=== PATIENT | female | born 1980 ===

== ENCOUNTER 2022-04-03 10:37 | Emergency (ER) | payer SELFPAY ==
[2022-04-03 10:48] VITALS: BP 117/75
[2022-04-03 11:07] LABS: BASO # 0.02 K/mm3 (0.02-0.10); EOS # 0.16 K/mm3 (0.04-0.40); EOS % 2.2 % (1.0-5.0); HEMATOCRIT 42.8 % (37.0-47.0); HEMOGLOBIN 14.3 g/dL (12.5-16.0); LYMPH# 2.52 K/mm3 (1.50-4.00); MEAN CELL VOLUME 87 fl (78-100); MEAN CORPUSCULAR HEMOGLOBIN 29 pg (27-31); MEAN CORPUSCULAR HGB CONC 33 g/dL (33-37); MEAN PLATELET VOLUME 8.8 fl (7.4-10.4); MONO # 0.35 K/mm3 (0.20-0.80); PLATELET COUNT 272 K/mm3 (130-400); RED BLOOD COUNT 4.93 M/mm3 (4.10-5.30); RED CELL DISTRIBUTION WIDTH 12.3 % (11.5-14.5); WHITE BLOOD COUNT 7.4 K/mm3 (4.8-10.8)
[2022-04-03 11:17] LABS: ALBUMIN 4.5 g/dL (3.5-5.0); POTASSIUM 3.9 mmol/L (3.5-5.1); SODIUM 141 mmol/L (136-145)
[2022-04-03 11:18] LABS: CALCIUM 9.8 mg/dL (8.3-10.5)
[2022-04-03 11:20] LABS: GLUCOSE 126 mg/dL (65-105); TOTAL PROTEIN 7.9 g/dL (6.4-8.3)
[2022-04-03 11:21] LABS: CARBON DIOXIDE 25 mmol/L (22-29); TOTAL BILIRUBIN 1.3 mg/dL (0.2-1.2)
[2022-04-03 11:25] LABS: AST-SGOT 12 U/L (5-34)
[2022-04-03 11:26] LABS: ALT/SGPT 14 U/L (0-55)
[2022-04-03 11:27] LABS: LIPASE 24 U/L (8-78)
[2022-04-03 11:37] LABS: TROPONIN-I < 0.030 ng/mL (<0.030)
[2022-04-03 11:58] LABS: URINE APPEARANCE HAZY; URINE BILIRUBIN NEGATIVE (NEGATIVE); URINE BLOOD NEGATIVE (NEGATIVE); URINE COLOR YELLOW; URINE GLUCOSE NEGATIVE (NEGATIVE); URINE KETONE NEGATIVE (NEGATIVE); URINE LEUKOCYTE ESTERASE NEGATIVE (NEGATIVE); URINE NITRATE POSITIVE (NEGATIVE); URINE PROTEIN(semi-quant) NEGATIVE (NEGATIVE); URINE UROBILINOGEN NORMAL (NORMAL)
[2022-04-03] MEDS ORDERED: MACROBID 100 M100 MG PO (12:35)
== END 2022-04-03 12:40 | disposition home or self-care (01) ==
LOC: ED 10:37
PROVIDERS: Nurse Practitioner
DX: N39.0 Urinary tract infection, site not specified (principal); Z28.310 Unvaccinated for COVID-19
CPT/HCPCS: J0696